=== PATIENT | female | born 1945 | race Caucasian/White ===

== ENCOUNTER → 2017-06-01 | Outpatient (CLI) | payer OTHER, MEDICARE | LOC: BRMIMAGING 14:53 | PROVIDERS: ATTEND Internal Medicine Rheumatology | DX: M19.041 Primary osteoarthritis, right hand (principal); M19.042 Primary osteoarthritis, left hand; E83.50 Unspecified disorder of calcium metabolism; M79.9 Soft tissue disorder, unspecified | CPT/HCPCS: 73120-PO ==